=== PATIENT | male | born 1970 | race Hispanic/Latino ===

== ENCOUNTER 2016-07-16 09:15 | Inpatient (IN) | payer MEDICAID ==
[2016-07-16 22:59] VITALS: BMI 25.9
[2016-07-16] MEDS ORDERED: DiphenhydrAMINE 50 mg/ml Inj IM PRN (23:09)
[2016-07-16] MEDS ORDERED: Magnesium Hydroxide Susp 30 ml UD PO PRN (23:09)
[2016-07-17 07:58] LABS: CHOLESTEROL 136 mg/dL (0-199)
[2016-07-17 08:37] LABS: T4 6.91 ug/dl (5.5-11.0)
[2016-07-17 08:50] LABS: THYROID STIMULATING HORMONE 1.4 mIU/ML (0.46-4.68)
[2016-07-17] MEDS: Multivitamin With Minerals Tab PO SCH (09:34)
--- NOTE | 2016-07-17 10:39 | PCM.PYCHPN ---
Psychiatric Progress Note - Psychiatric Progress Note Patient seen today, length of contact: discussed with team Patient Chief Complaint: i have hot and cold flashes Problems Identified/Issues Discussed: pt reports he sleeps through the night now. feels more comfortable around peers here. he states for last week has had cold/hot flashes and night sweats. denies weight loss. he reports not nausea, shakes or other symptoms of etoh withdrawal. reports he wants to get better and that he knows he can't isolate like he was prior to his admission- states he sat in a room for days at a time without seeing any people. Medication Change: No Medical Record Reviewed: Yes Mental Status Examination - Cognitive Function Orientation: Person Memory: Intact Attention: WNL Concentration: WNL Association: WNL Fund of Knowledge: [facility] Decription of patient's judgement and insights: fair - Mood Mood: Depressed - Affect Affect: Broad - Speech Speech: Appropriate - Formal Thought Process Formal Thought Process: No Impairment Psychotic Thoughts and Behaviors: denies any a/v hallucinations - Suicidal Ideation Suicidal Ideation: No - Homicidal Ideation Homicidal Ideation: No Goal/Treatment Plan - Goal/Treatment Plan Need for Continued Stay: Remain at risks for inpatient hospitalization, Severe functional impairment Progress Toward Problem(s) and Goals/Treatment Plan: polysubstance dependence major depression recurrent will continue current medications hospitalist following pt- bette have rn make them aware of pt's c/o night sweats, etc encourage participation in groups and t/c referral to inpt rehab Estimated Date of D/C: 07/23/16 - Smoking Cessation Smoking Cessation Initiated: Yes
--- NOTE | 2016-07-17 14:56 | CP.PCM.CON ---
History of Present Illness - History of Present Illness History of Present Illness: 46 y/o male with PMH polysubstance abuse, Depression ETOH abuse , HTN ? Schiatica admitted to psych unit for management of depression. Patient presented to hospital for evaluation of suicidal thoughts and ideation , feeling hopeless, alone , withdrawn. Gives history of prior suicidal attempts , with drug overdose and drinking rubbing alcohol. Medicine consult called as per protocol. At present calm, sad , unable to sleep through the night . Denies suicidal ideation at present and wants to get and feel better. Denies any CP,SOB, palpitations, PND, orthopnea, urinary sx or changes in bowel movements. He is heavy ETOH user. No signs of withdrawal at present. Allergies ; NKDA PMH :multiple drug abuse, Depression ETOH abuse , HTN ? Schiatica Medications ; NOne Surgery ; Left knee surgery x 2 Family history ; Father had HTN and killed himself Social history ; Lives alone in [facility], , has 3 children, works as watchman, drinks heavily 60 beers and 1 L vodka since 16 years old, multiple drug abuse like meth, cocaine, smoker ROS ; 10 point review of system negative except above states that when eats feels like food is stuck in the esophagus Review of Systems - Review of Systems All systems: reviewed and no additional remarkable complaints except Past Patient History - Infectious Disease Hx of Infectious Diseases: None - Tetanus Immunizations Tetanus Immunization: Unknown - Past Medical History & Family History Past Medical History?: Yes Past Family History: Reviewed and not pertinent - Past Social History Alcohol: > 2 Drinks/Day Drugs: Cannabis, Cocaine, Other (crystal meth ) Home Situation {Lives}: Alone Domestic Violence: Negative Meds Allergies/Adverse Reactions: Allergies Allergy/AdvReac Type Severity Reaction Status Date / Time No Known Allergies Allergy Verified 07/16/16 23:00 - Medications Medications: Current Medications Acetaminophen (Tylenol 325mg Tab) 650 mg PO Q4 PRN PRN Reason: Pain, Mild (1-3) Al Hydrox/Mg Hydrox/Simethicone (Maalox Plus 30 Ml) 30 ml PO Q4 PRN PRN Reason: Dyspepsia Diphenhydramine HCl (Benadryl) 50 mg IM Q6 PRN PRN Reason: Extrapyramidal S/S Unable PO Diphenhydramine HCl (Benadryl) 50 mg PO Q6 PRN PRN Reason: Extrapyramidal Symptoms Last Admin: 07/17/16 12:40 Dose: 50 mg Folic Acid (Folic Acid) 1 mg PO DAILY [facility] Last Admin: 07/17/16 09:35 Dose: 1 mg Gabapentin (Neurontin) 300 mg PO BID [facility] Last Admin: 07/17/16 09:35 Dose: 300 mg Gabapentin (Neurontin) 300 mg PO HS [facility] Last Admin: 07/16/16 22:00 Dose: 300 mg Haloperidol (Haldol) 5 mg PO Q4 PRN PRN Reason: Agitation Last Admin: 07/17/16 12:40 Dose: 5 mg Haloperidol Lactate (Haldol) 5 mg IM Q4 PRN PRN Reason: Agitation, Unable to Take PO Lorazepam (Ativan) 2 mg IM Q4 PRN PRN Reason: Anxiety/Agitation,Unable PO Magnesium Hydroxide (Milk Of Magnesia) 30 ml PO HS PRN PRN Reason: Constipation Multivitamins/Minerals (Therapeutic-M Tab) 1 tab PO DAILY [facility] Last Admin: 07/17/16 09:34 Dose: 1 tab Nicotine (Nicoderm Cq) 1 patch TD DAILY [facility] Last Admin: 07/17/16 09:34 Dose: 1 patch Sertraline HCl (Zoloft) 25 mg PO DAILY [facility] Last Admin: 07/17/16 09:34 Dose: 25 mg Thiamine HCl (Vitamin B1 Tab) 100 mg PO DAILY [facility] Last Admin: 07/17/16 09:34 Dose: 100 mg Trazodone HCl (Desyrel) 50 mg PO HS [facility] Last Admin: 07/16/16 22:00 Dose: 50 mg Physical Exam - Constitutional Appears: Non-toxic, No Acute Distress - Head Exam Head Exam: ATRAUMATIC, NORMAL INSPECTION, NORMOCEPHALIC - Eye Exam Eye Exam: EOMI, Normal appearance, PERRL Pupil Exam: NORMAL ACCOMODATION - ENT Exam ENT Exam: Mucous Membranes Moist, Normal Exam - Neck Exam Neck exam: Positive for: Full Rom, Normal Inspection - Respiratory Exam Respiratory Exam: Clear to Auscultation Bilateral, NORMAL BREATHING PATTERN. absent: Rales, Rhonchi, Wheezes - Cardiovascular Exam Cardiovascular Exam: REGULAR RHYTHM, RRR, +S1, +S2. absent: JVD - GI/Abdominal Exam GI & Abdominal Exam: Normal Bowel Sounds, Soft. absent: Distended, Guarding, Rebound, Tenderness - Rectal Exam Rectal Exam: Deferred - Extremities Exam Extremities exam: Positive for: normal capillary refill, normal inspection, pedal pulses present. Negative for: calf tenderness, pedal edema - Back Exam Back exam: NORMAL INSPECTION - Neurological Exam Neurological exam: Alert, CN II-XII Intact, Oriented x3, Reflexes Normal - Psychiatric Exam Psychiatric exam: Depressed, Flat Affect - Skin Skin Exam: Dry, Intact, Normal Color, Warm Results - Vital Signs Recent Vital Signs: Last Vital Signs Temp 99.9 F H 07/17/16 09:00 Pulse 85 07/17/16 09:00 Resp 18 07/17/16 09:00 BP 136/87 07/17/16 09:00 Pulse Ox - Labs Labs: Laboratory Results - last 24 hr 07/17/16 07/17/16 07:36 07:46 Triglycerides 125 Cholesterol 136 LDL Cholesterol Direct 77 HDL Cholesterol 40 Thyroxine (T4) 6.91 TSH 3rd Generation 1.40 Assessment & Plan - Assessment and Plan (Free Text) Assessment: 46 y/o male with PMH polysubstance abuse, Depression ETOH abuse , HTN ? Schiatica admitted to psych unit for management of depression. Patient presented to hospital for evaluation of suicidal thoughts and ideation , feeling hopeless, alone , withdrawn. Gives history of prior suicidal attempts , with drug overdose and drinking rubbing alcohol. Medicine consult called as per protocol. At present calm, sad , unable to sleep through the night . Denies suicidal ideation at present and wants to get and feel better. Denies any CP,SOB, palpitations, PND, orthopnea, urinary sx or changes in bowel movements. He is heavy ETOH user. No signs of withdrawal at present. 1. Depression with suicidal ideation Continue Folic acid, Thiamine Ativan PRN Management as per psych 2. Polysubstance abuse/ ETOH abuse Will benefit from referral to detox programs Counselled patient Check liver fxn Continue folic acid, Thiamine Ativan PRN 3. Tobacco use disorder on Nicotine patch 4. Suspected HTN ? Continue to monitor for now with no meds 5. DVt prophylaxis Ambulatory in unit
[2016-07-18] MEDS: Multivitamin With Minerals Tab PO SCH (09:02)
[2016-07-18 10:35] VITALS: O2SAT 100
[2016-07-18 11:25] LABS: MEAN CORPUSCULAR HEMOGLOBIN 29.9 pg (27.0-31.0); RED CELL DISTRIBUTION WIDTH 14.3 % (11.5-14.5); WHITE BLOOD COUNT 10.2 K/uL (4.8-10.8)
[2016-07-18 11:30] LABS: ALB/GLOB RATIO 1.6 (1.0-2.1); ALKALINE PHOSPHATASE 56 U/L (38-126); ALT/SGPT 29 U/L (21-72); AST/SGOT 27 U/L (17-59); BILIRUBIN,TOTAL 0.9 mg/dl (0.2-1.3); BLOOD UREA NITROGEN 16 mg/dl (9-20); CALCIUM 10.5 mg/dL (8.4-10.2); CARBON DIOXIDE 25 mmol/L (22-30); CHLORIDE 99 mmol/L (98-107); CHOLESTEROL 143 mg/dL (0-199); GFR AFRICAN-AMERICAN > 60; GLUCOSE,RANDOM 112 mg/dL (75-110); POTASSIUM 4.3 MMOL/L (3.6-5.0); SODIUM 140 mmol/l (132-148); TOTAL PROTEIN 9.2 G/DL (6.3-8.2)
--- NOTE | 2016-07-18 12:30 | PCM.PYCHPN ---
Psychiatric Progress Note - Psychiatric Progress Note Patient seen today, length of contact: discussed with team Patient Chief Complaint: i m okay Problems Identified/Issues Discussed: pt with some periods of irritability. he is anxious around peers, but does seem to socialize here. he has no aggression or agitation. Medication Change: No Medical Record Reviewed: Yes Mental Status Examination - Cognitive Function Orientation: Person Memory: Intact Attention: WNL Concentration: WNL Association: WNL Fund of Knowledge: WN Decription of patient's judgement and insights: fair - Mood Mood: Depressed, Anxious - Affect Affect: Broad - Speech Speech: Appropriate - Formal Thought Process Formal Thought Process: No Impairment Psychotic Thoughts and Behaviors: denies any a/v hallucinations - Suicidal Ideation Suicidal Ideation: No - Homicidal Ideation Homicidal Ideation: No Goal/Treatment Plan - Goal/Treatment Plan Need for Continued Stay: Remain at risks for inpatient hospitalization, Severe functional impairment Progress Toward Problem(s) and Goals/Treatment Plan: polysubstance dependence major depression recurrent will continue current medications hospitalist following pt ensure ordered as per dietary encourage participation in groups and t/c referral to inpt rehab Estimated Date of D/C: 07/23/16
[2016-07-18 13:02] LABS: THYROID STIMULATING HORMONE 1.71 mIU/ML (0.46-4.68)
[2016-07-18] MEDS: Alum-Mag Hydrox-Simethicone Susp (30 mL) PO PRN (16:48)
[2016-07-19] MEDS: Multivitamin With Minerals Tab PO SCH (08:38)
--- NOTE | 2016-07-19 11:52 | PCM.PYCHPN ---
Psychiatric Progress Note - Psychiatric Progress Note Patient seen today, length of contact: discussed with team Patient Chief Complaint: i m cramping up sometimes Problems Identified/Issues Discussed: pt feels anxious. slept better last night. no withdrawal symptoms. pt feels like leaving the hospital this week. no longer interested in inpt rehab. Medication Change: No Medical Record Reviewed: Yes Mental Status Examination - Cognitive Function Orientation: Person Memory: Intact Attention: WNL Concentration: WNL Association: WNL Fund of Knowledge: [facility] Decription of patient's judgement and insights: fair - Mood Mood: Depressed, Anxious - Affect Affect: Broad - Speech Speech: Appropriate - Formal Thought Process Formal Thought Process: No Impairment Psychotic Thoughts and Behaviors: denies any a/v hallucinations - Suicidal Ideation Suicidal Ideation: No - Homicidal Ideation Homicidal Ideation: No Goal/Treatment Plan - Goal/Treatment Plan Need for Continued Stay: Remain at risks for inpatient hospitalization, Severe functional impairment Progress Toward Problem(s) and Goals/Treatment Plan: polysubstance dependence major depression recurrent will continue current medications hospitalist following pt will refer to outpt treatment this week Estimated Date of D/C: 07/23/16
[2016-07-19] MEDS: Alum-Mag Hydrox-Simethicone Susp (30 mL) PO PRN ×2 (12:27→16:52)
[2016-07-20] MEDS: Multivitamin With Minerals Tab PO SCH (08:57)
--- NOTE | 2016-07-20 09:49 | PCM.PYCHPN ---
Psychiatric Progress Note - Psychiatric Progress Note Patient seen today, length of contact: discussed with team Patient Chief Complaint: i can't take the weekends here Problems Identified/Issues Discussed: pt with irritable, labile mood. poor sleep. feels his thoughts racing. pt with episodes of anger and needing frequent redirection to keep from becoming agitated on the unit. he is agreeable to change medications. Medication Change: Yes (dc zoloft, start depakote to stabilize mood) Medical Record Reviewed: Yes Mental Status Examination - Cognitive Function Orientation: Person Memory: Intact Attention: WNL Concentration: WNL Association: WN Fund of Knowledge: [facility] Decription of patient's judgement and insights: fair - Mood Mood: Anxious, Other (irritable) - Affect Affect: Broad - Speech Speech: Appropriate - Formal Thought Process Formal Thought Process: No Impairment Psychotic Thoughts and Behaviors: denies any a/v hallucinations - Suicidal Ideation Suicidal Ideation: No - Homicidal Ideation Homicidal Ideation: No Goal/Treatment Plan - Goal/Treatment Plan Need for Continued Stay: Remain at risks for inpatient hospitalization, Severe functional impairment Progress Toward Problem(s) and Goals/Treatment Plan: polysubstance dependence bipolar disorder, mixed start depakote 500mg bid dc zoloft continue other medications Estimated Date of D/C: 07/23/16 - Smoking Cessation Smoking Cessation Initiated: Yes
[2016-07-20] MEDS: Divalproex 500 mg DR(BID formulation) PO SCH ×2 (10:00→16:40)
[2016-07-20] MEDS: Alum-Mag Hydrox-Simethicone Susp (30 mL) PO PRN ×2 (15:30→17:44)
--- NOTE | 2016-07-20 15:46 | CP.PCM.PN ---
Subjective - Date & Time of Evaluation Date of Evaluation: 07/20/16 Time of Evaluation: 15:40 - Subjective Subjective: Pt seen and examined. Complained of upper abdominal pain accompanied with 6 bouts of diarrhea. Objective - Vital Signs/Intake and Output Vital Signs (last 24 hours): Temp Pulse Resp BP Pulse Ox 98.1 F 94 H 19 148/101 H 100 07/20/16 09:00 07/20/16 10:00 07/20/16 09:00 07/20/16 10:00 07/19/16 09:00 - Medications Medications: Current Medications Acetaminophen (Tylenol 325mg Tab) 650 mg PO Q6 PRN PRN Reason: Pain, moderate (4-7) Al Hydrox/Mg Hydrox/Simethicone (Maalox Plus 30 Ml) 30 ml PO Q4 PRN PRN Reason: Dyspepsia Last Admin: 07/19/16 16:52 Dose: 30 ml Diphenhydramine HCl (Benadryl) 50 mg IM Q6 PRN PRN Reason: Extrapyramidal S/S Unable PO Diphenhydramine HCl (Benadryl) 50 mg PO Q6 PRN PRN Reason: Extrapyramidal Symptoms Last Admin: 07/17/16 12:40 Dose: 50 mg Divalproex Sodium (Depakote Dr(*Bid*)) 500 mg PO BID [facility] Last Admin: 07/20/16 10:00 Dose: 500 mg Doxepin HCl (Sinequan) 10 mg PO [facility] Folic Acid (Folic Acid) 1 mg PO DAILY [facility] Last Admin: 07/20/16 08:55 Dose: 1 mg Gabapentin (Neurontin) 600 mg PO BID [facility] Last Admin: 07/20/16 08:55 Dose: 600 mg Gabapentin (Neurontin) 600 mg PO HS [facility] Last Admin: 07/19/16 21:17 Dose: 600 mg Haloperidol (Haldol) 5 mg PO Q4 PRN PRN Reason: Agitation Last Admin: 07/17/16 12:40 Dose: 5 mg Haloperidol Lactate (Haldol) 5 mg IM Q4 PRN PRN Reason: Agitation, Unable to Take PO Hydrochlorothiazide (Hydrodiuril) 25 mg PO DAILY [facility] Last Admin: 07/20/16 08:55 Dose: 25 mg Hydroxyzine Pamoate (Vistaril) 50 mg PO Q6 PRN PRN Reason: Anxiety Last Admin: 07/19/16 14:52 Dose: 50 mg Ibuprofen (Motrin Tab) 400 mg PO Q6 PRN PRN Reason: Pain, moderate (4-7) Loperamide HCl (Imodium) 4 mg PO ONCE ONE Stop: 07/20/16 15:42 Lorazepam (Ativan) 2 mg IM Q4 PRN PRN Reason: Anxiety/Agitation,Unable PO Last Admin: 07/17/16 18:16 Dose: 2 mg Lorazepam (Ativan) 1 mg PO Q6 PRN PRN Reason: Anxiety Last Admin: 07/20/16 01:46 Dose: 1 mg Magnesium Hydroxide (Milk Of Magnesia) 30 ml PO HS PRN PRN Reason: Constipation Metoprolol Tartrate (Lopressor) 12.5 mg PO Q12 [facility] Last Admin: 07/20/16 10:00 Dose: 12.5 mg Multivitamins/Minerals (Therapeutic-M Tab) 1 tab PO DAILY [facility] Last Admin: 07/20/16 08:57 Dose: 1 tab Nicotine (Nicoderm Cq) 1 patch TD DAILY [facility] Last Admin: 07/20/16 08:56 Dose: 1 patch Pantoprazole Sodium (Protonix Ec Tab) 40 mg PO DAILY [facility] Thiamine HCl (Vitamin B1 Tab) 100 mg PO DAILY [facility] Last Admin: 07/20/16 08:55 Dose: 100 mg - Labs Labs: 07/18/16 10:00 07/18/16 10:00 - Constitutional Appears: No Acute Distress - Head Exam Head Exam: ATRAUMATIC - Eye Exam Eye Exam: absent: Scleral icterus - ENT Exam ENT Exam: Mucous Membranes Moist - Neck Exam Neck Exam: absent: Meningismus - Respiratory Exam Respiratory Exam: absent: Rhonchi, Wheezes, Respiratory Distress - Cardiovascular Exam Cardiovascular Exam: REGULAR RHYTHM, +S1, +S2 - GI/Abdominal Exam GI & Abdominal Exam: Soft, Tenderness (over epigastric region). absent: Guarding, Rebound - Rectal Exam Rectal Exam: Deferred - Neurological Exam Neurological Exam: Alert, Oriented x3 - Psychiatric Exam Psychiatric exam: Normal Affect - Skin Skin Exam: Dry, Intact Assessment and Plan (1) Abdominal pain Status: Acute - Assessment and Plan (Free Text) Assessment: probably secondary to alcohol withdrawal CBC, CMP Protonix 40mg PO daily Mylanta 30 cc PO Clonidine 0.1mg PO TID Stool for C dif
[2016-07-20] MEDS: Pantoprazole 40 mg EC Tab PO SCH (16:40)
[2016-07-20 20:47] LABS: BASO # 0.2 K/uL (0.0-0.2); BASO % 1.1 % (0.0-2.0); EOS # 0.2 K/uL (0.0-0.7); EOS % 1.6 % (0.0-4.0); HEMATOCRIT 43.5 % (35.0-51.0); LYMPH # 4.1 K/uL (1.0-4.3); MEAN CELL VOLUME 88.7 fl (80.0-94.0); MEAN CORPUSCULAR HEMOGLOBIN 29.1 pg (27.0-31.0); MEAN CORPUSCULAR HGB CONC 32.7 g/dL (33.0-37.0); MEAN PLATELET VOLUME 7.5 fl (7.2-11.7); MONO # 0.6 K/uL (0.0-0.8); MONO % 4.4 % (0.0-10.0); NEUT # 9.5 K/uL (1.8-7.0); NEUT % 64.9 % (50.0-75.0); NRBC % 0.1 % (0.0-0.0); RED CELL DISTRIBUTION WIDTH 14.3 % (11.5-14.5); WHITE BLOOD COUNT 14.6 K/uL (4.8-10.8)
[2016-07-20 21:16] LABS: ALB/GLOB RATIO 1.7 (1.0-2.1); ALKALINE PHOSPHATASE 61 U/L (38-126); ALT/SGPT 23 U/L (21-72); AST/SGOT 45 U/L (17-59); BLOOD UREA NITROGEN 17 mg/dl (9-20); CALCIUM 10.1 mg/dL (8.4-10.2); CARBON DIOXIDE 26 mmol/L (22-30); CHLORIDE 95 mmol/L (98-107); GFR AFRICAN-AMERICAN > 60; GLUCOSE,RANDOM 130 mg/dL (75-110); POTASSIUM 4.5 MMOL/L (3.6-5.0); SODIUM 136 mmol/l (132-148); TOTAL PROTEIN 8.5 G/DL (6.3-8.2)
[2016-07-21] MEDS: Alum-Mag Hydrox-Simethicone Susp (30 mL) PO PRN ×2 (06:14→15:02)
[2016-07-21] MEDS: Pantoprazole 40 mg EC Tab PO SCH (08:51)
[2016-07-21] MEDS: Multivitamin With Minerals Tab PO SCH (08:51)
[2016-07-21] MEDS: Divalproex 500 mg DR(BID formulation) PO SCH ×2 (08:51→18:37)
--- NOTE | 2016-07-21 08:56 | PCM.PYCHPN ---
Psychiatric Progress Note - Psychiatric Progress Note Patient seen today, length of contact: discussed with team Patient Chief Complaint: i slept real good last night Problems Identified/Issues Discussed: pt reports he is feeling less irritable. still motivated to remain sober. states he is "starting to open up a little" in the groups. no aggression. Medication Change: No ( ) Medical Record Reviewed: Yes Mental Status Examination - Cognitive Function Orientation: Person Memory: Intact Attention: WNL Concentration: WNL Association: WNL Fund of Knowledge: [facility] Decription of patient's judgement and insights: fair - Mood Mood: Anxious, Other (irritable) - Affect Affect: Broad - Speech Speech: Appropriate - Formal Thought Process Formal Thought Process: No Impairment Psychotic Thoughts and Behaviors: denies any a/v hallucinations - Suicidal Ideation Suicidal Ideation: No - Homicidal Ideation Homicidal Ideation: No Goal/Treatment Plan - Goal/Treatment Plan Need for Continued Stay: Remain at risks for inpatient hospitalization, Severe functional impairment Progress Toward Problem(s) and Goals/Treatment Plan: polysubstance dependence bipolar disorder, mixed continue depakote 500mg bid continue other medications disposition planning Estimated Date of D/C: 07/23/16
[2016-07-21 09:37] VITALS: RESP 18; TEMP 97.7
[2016-07-22] MEDS: Alum-Mag Hydrox-Simethicone Susp (30 mL) PO PRN (06:31)
[2016-07-22] MEDS: Pantoprazole 40 mg EC Tab PO SCH (08:15)
[2016-07-22] MEDS: Divalproex 500 mg DR(BID formulation) PO SCH (08:59)
[2016-07-22] MEDS: Multivitamin With Minerals Tab PO SCH (08:59)
[2016-07-22 09:01] VITALS: PULSE 78
[2016-07-22 09:37] VITALS: BP 125/75
--- NOTE | 2016-07-22 13:20 | PCM.PYCHDC ---
Mental Status Examination - Mental Status Examination Orientation: Person, Place, Situation, Time Memory: Intact Mood: Neutral Affect: Broad Speech: Appropriate Attention: WNL Concentration: WNL Association: WNL Fund of Knowledge: WNL Formal Thought Process: No Impairment Description of patient's judgement and insight: fair Psychotic Thoughts and Behaviors: denies any a/v hallucinations Suicidal Ideation: No Current Homicidal Ideation?: No Plan: pt denies any suicidal or homicidal thoughts/plans or intent Discharge Summary - Discharge Note Reason for Hospitalization: substance use, depression, suicidal thoughts Psychiatric History (includes Medical, Family, Personal Hx): history of polysubstance dependence, trauma, mood disturbance Consultations:: List each consultation separately and include: 1. Reason for request. 2. Findings. 3. Follow-up Consultations: seen by the hospitalist Summary of Hospital Course include:: 1. Description of specific treatment plan utilized for patients during their course of treatmen. 2. Summarize the time- course for resolution of acute symptoms and/or regressed behaviors. 3. Describe issues identified and worked on during hospitalization. 4. Describe medication utilized. 5. Describe medical problems identified and treated. 6. Reassessment of suicide risk Summary of Hospital Course: pt was admitted to [facility] and oriented to the unit. he was placed on routine safety protocols and seen by center medical and lab director. he was started on zoloft but this seemed to increase his irritablity. he was started on depakote and neurontin to help target his mood/anxiety. he was started on doxepin to help with his sleep disturbance. his mood became less irritable. he attended groups and was social with peers. however pt remained impulsive and stated he felt too confined on the unit. he was in contact with his son's gf in [place] and decided to relocate there to help with his grandchildren. he was saying he did not want to use drugs and would seek treatment when he was settled. he was denying suicidal or homicidal thoughts. he was aware that the team wanted him to check a depakote level and that he should have a depakote level checked to make sure the dose was safe and appropriate. he was given scripts for 2 week supply with one refill for his medications. - Final Diagnosis (DSM 5) Condition upon Discharge: FAIR DSM 5: bipolar disorder, mixed polysubstance dependence Disposition: HOME/ ROUTINE Follow-up Treatment Plan: follow up with aftercare as directed take medications as prescribed do not use alcohol, tobacco or other illicit substances call 911 if any suicidal or homicidal thoughts attend aa/na meetings daily Prescriptions/Medication Reconciliation: Divalproex [Depakote DR(*BID*)] 500 mg PO BID #30 tcp Doxepin [Sinequan] 10 mg PO HS #15 cap Folic Acid 1 mg PO DAILY #30 tab Gabapentin [Neurontin] 600 mg PO HS #15 tab Gabapentin [Neurontin] 600 mg PO BID #30 tab hydroCHLOROthiazide [Hydrodiuril] 25 mg PO DAILY #15 tab Metoprolol Tartrate [Lopressor] 12.5 mg PO Q12 #30 tab Multimineral/Multivitamin [Therapeutic-M Tab] 1 tab PO DAILY #30 tab Nicotine 21 mg/24 hr [Nicoderm Cq] 1 patch TD DAILY #30 patch Pantoprazole [Protonix EC Tab] 40 mg PO DAILY #30 ect Thiamine [Vitamin B1 Tab] 100 mg PO DAILY #30 tab - Smoking Cessation Smoking Cessation Medication prescribed: Yes - Antipsychotic Medications Pt discharged on 2 or more routine antipsychotic medications: No
== END 2016-07-22 15:02 | disposition home or self-care (01) | DRG 430 ==
LOC: H.EDERROR 09:15 → H.PSYCH 09:45
PROVIDERS: ADMIT Psychiatry & Neurology Psychiatry; ATTEND Psychiatry & Neurology Psychiatry
PROC: GZHZZZZ Group Psychotherapy (ICD-10-PCS; principal; 2016-07-16)
DX: F31.60 Bipolar disorder, current episode mixed, unspecified (principal); R45.851 Suicidal ideations; F10.239 Alcohol dependence with withdrawal, unspecified; F19.20 Other psychoactive substance dependence, uncomplicated; Z72.0 Tobacco use